=== PATIENT | female | born 1945 | race African-American/Black ===

== ENCOUNTER → 2019-10-04 | Outpatient (CLI) | payer MEDICARE ==
--- NOTE | 2019-10-04 16:47 | RAD ---
Transabdominal sonography of the pelvis Clinical indications: Right lower quadrant abdominal pain. FINDINGS: The uterus is surgically absent. The vaginal cuff is unremarkable. No pelvic mass is seen today. No adnexal mass is seen. Neither ovary is visualized. No free fluid is evident. IMPRESSION: Unremarkable postoperative pelvis. Electronically signed by: Dave Coleman MD (10/04/2019 4:45 PM) [id number]
--- NOTE | 2019-10-04 16:50 | RAD ---
ABDOMEN COMPLETE History: Reason: RLQ ABD PAIN / Spl. Instructions: / History: Comparison: Ultrasound November 19, 2017 Technique: Sonographic examination of the abdomen was performed and multiple grayscale and color Doppler static images were obtained. Findings: Liver demonstrates normal echogenicity. The liver measures 15.4 cm. Portal flow is patent. Hepatic cysts measure 2.5 cm with septations and 1.7 cm. Common bile duct measures 4 mm in diameter. Gallbladder wall is normal with prominent fold. No cholelithiasis or pericholecystic fluid. Negative sonographic Camargo sign. Visualized pancreas is unremarkable The right kidney measures 9.9 x 4.2 x 4.0 cm. Extrarenal pelvis, unchanged. No hydronephrosis. The left kidney measures 9.7 x 4.1 x 4.5 cm. Extrarenal pelvis, unchanged. No hydronephrosis. The spleen not well visualized due to positioning and overlying structures. Visualized portions of the abdominal aorta and IVC are normal. IMPRESSION: 1. No acute abdominal pathology. 2. Hepatic cysts, unchanged. 3. Extrarenal pelvises bilaterally, unchanged. Electronically signed by: Bossman Del Toro DO (10/04/2019 4:48 PM) [facility]
== END | disposition home or self-care (01) ==
LOC: US 09:18
PROVIDERS: ATTEND Nurse Practitioner
DX: R10.31 Right lower quadrant pain (principal); K76.89 Other specified diseases of liver; Z90.710 Acquired absence of both cervix and uterus
CPT/HCPCS: 76700; 76856